=== PATIENT | female | born 1980 | race Caucasian/White ===

== ENCOUNTER 2020-10-04 19:15 | Emergency (ER) | payer OTHER ==
[~2020-10-04] VITALS: Ht 162.6 cm; Wt 59.0 kg
[2020-10-04 19:51] LABS: BASOPHILS ABSOLUTE AUTO 0.12 K/mm3 (0.00-0.23); BASOPHILS PERCENT AUTO 1 % (0-2); EOSINOPHILS ABSOLUTE AUTO 0.44 K/mm3 (0.00-0.68); EOSINOPHILS PERCENT AUTO 2 % (0-6); Hematocrit 41.1 % (33.0-51.0); IMMATURE GRAN ABSOLUTE AUTO 0.15 K/mm3 (0.00-0.10); IMMATURE GRAN PERCENT AUTO 1 % (0-1); LYMPHOCYTES ABSOLUTE AUTO 2.06 K/mm3 (0.84-5.20); LYMPHOCYTES PERCENT AUTO 10 % (21-46); MONOCYTES ABSOLUTE AUTO 2.09 K/mm3 (0.16-1.47); MONOCYTES PERCENT AUTO 10 % (4-13); Mean Corpuscular HGB 27.1 pg (26.0-34.0); Mean Corpuscular HGB Conc 31.6 g/dL (31.5-36.5); Mean Corpuscular Volume 86 fL (80-100); Mean Platelet Volume 9.3 fL (9.1-12.4); NEUTROPHILS ABSOLUTE AUTO 16.27 K/mm3 (1.96-9.15); NEUTROPHILS PERCENT AUTO 77 % (41-73); Platelet Count 401 K/mm3 (150-400); RDW Coefficient Variation 13.7 % (11.7-14.2); RDW Standard Deviation 42.9 fL (35.1-46.3); Red Blood Cell Count 4.79 M/mm3 (3.80-5.20); White Blood Cell Count 21.13 K/mm3 (4.00-11.30)
[2020-10-04] MEDS ORDERED: NEXPLANON68 MG SQ (19:55)
[2020-10-04 20:14] LABS: Alanine Aminotransfer (ALT/SGP 21 U/L (12-78); Albumin, Blood 3.5 g/dL (3.4-5.0); Albumin/Globulin Ratio 0.9 (0.8-1.8); Alk Phos 110 U/L (50-136); Anion Gap 4 mmol/L (6-16); Aspartate Aminotrans (AST/SGOT 11 U/L (12-37); Bilirubin, Total 0.5 mg/dL (0.1-1.0); Blood Urea Nitrogen 11 mg/dL (8-24); Bun/Creatinine Ratio 12.3 (12.0-20.0); CO2, Blood 27 mmol/L (21-32); Calcium, Blood 8.8 mg/dL (8.5-10.1); Chloride, Blood 105 mmol/L (98-108); Creatinine, Blood 0.89 mg/dL (0.40-1.00); Globulin, Blood 3.7 g/dL (2.2-4.0); Glomerular Filtration Rate >60 (60-); Glucose, Blood 130 mg/dL (70-99); Potassium, Blood 3.9 mmol/L (3.5-5.5); Sodium, Blood 136 mmol/L (136-145); Total Protein, Blood 7.2 g/dL (6.4-8.2)
[2020-10-04 20:16] LABS: Bilirubin, Urine Neg (Neg); Blood, Urine 5+ (Neg); Glucose Qualitative, Urine Neg (Neg); Ketones, Urine Neg (Neg); Leukocyte Esterase, Urine 3+ (Neg); Nitrite, Urine Pos (Neg); Protein, Urine 3+ (Neg); Urobilinogen, Urine NORM (Normal)
[2020-10-04 20:17] LABS: Appearance, Urine Cloudy (Clear); Color, Urine Yellow (P-Yellow)
[2020-10-04 20:27] LABS: Bacteria Many /hpf
[2020-10-04 20:29] LABS: Squamous Epithelial Cells Few /hpf (Few)
[2020-10-04 20:30] LABS: White Blood Cells, Urine TNTC /hpf (0-5)
[2020-10-04] MEDS ORDERED: CEFD300 PO (22:13)
[2020-10-04] MEDS ORDERED: ONDA4ODT MM (22:15)
== END 2020-10-04 22:25 | disposition home or self-care (01) ==
LOC: ER 19:15
PROVIDERS: Emergency Medicine; Physician Assistant
DX: N10 Acute pyelonephritis (principal); Z79.3 Long term (current) use of hormonal contraceptives
CPT/HCPCS: 76830; 76856; 80053; 81001; 84703; 85025; 86850; 86900; 86901; 87077; 87086; 87186; 96365; 99284-25; J0696; J7030

== ENCOUNTER 2020-10-05 14:19 | Inpatient (IN) | payer OTHER ==
[~2020-10-05] VITALS: Ht 162.6 cm; Wt 78.6 kg
[~2020-10-05 14:19] MED LIST: CEFD300 PO; NEXPLANON68 MG SQ; ONDA4ODT MM
[2020-10-05 15:02] LABS: BASOPHILS ABSOLUTE AUTO 0.11 K/mm3 (0.00-0.23); BASOPHILS PERCENT AUTO 1 % (0-2); EOSINOPHILS ABSOLUTE AUTO 0.23 K/mm3 (0.00-0.68); EOSINOPHILS PERCENT AUTO 1 % (0-6); Hematocrit 39.6 % (33.0-51.0); Hemoglobin 12.6 g/dL (11.5-16.0); IMMATURE GRAN ABSOLUTE AUTO 0.16 K/mm3 (0.00-0.10); IMMATURE GRAN PERCENT AUTO 1 % (0-1); LYMPHOCYTES ABSOLUTE AUTO 2.56 K/mm3 (0.84-5.20); LYMPHOCYTES PERCENT AUTO 12 % (21-46); MONOCYTES ABSOLUTE AUTO 2.82 K/mm3 (0.16-1.47); MONOCYTES PERCENT AUTO 13 % (4-13); Mean Corpuscular HGB 27.2 pg (26.0-34.0); Mean Corpuscular HGB Conc 31.8 g/dL (31.5-36.5); Mean Corpuscular Volume 86 fL (80-100); Mean Platelet Volume 9.3 fL (9.1-12.4); NEUTROPHILS ABSOLUTE AUTO 15.73 K/mm3 (1.96-9.15); NEUTROPHILS PERCENT AUTO 73 % (41-73); Platelet Count 392 K/mm3 (150-400); RDW Coefficient Variation 13.4 % (11.7-14.2); Red Blood Cell Count 4.63 M/mm3 (3.80-5.20); White Blood Cell Count 21.61 K/mm3 (4.00-11.30)
[2020-10-05 15:23] LABS: Alanine Aminotransfer (ALT/SGP 22 U/L (12-78); Albumin, Blood 3.2 g/dL (3.4-5.0); Albumin/Globulin Ratio 0.8 (0.8-1.8); Alk Phos 107 U/L (50-136); Anion Gap 4 mmol/L (6-16); Aspartate Aminotrans (AST/SGOT 14 U/L (12-37); Bilirubin, Total 0.5 mg/dL (0.1-1.0); Blood Urea Nitrogen 9 mg/dL (8-24); Bun/Creatinine Ratio 9.8 (12.0-20.0); CO2, Blood 27 mmol/L (21-32); Calcium, Blood 8.6 mg/dL (8.5-10.1); Chloride, Blood 102 mmol/L (98-108); Creatinine, Blood 0.91 mg/dL (0.40-1.00); Globulin, Blood 3.9 g/dL (2.2-4.0); Glomerular Filtration Rate >60 (60-); Glucose, Blood 117 mg/dL (70-99); Potassium, Blood 4.4 mmol/L (3.5-5.5); Sodium, Blood 133 mmol/L (136-145); Total Protein, Blood 7.1 g/dL (6.4-8.2)
[2020-10-05 18:38] LABS: Source, Urine Clean Catch
[2020-10-05 18:53] LABS: Appearance, Urine Clear (Clear); Bilirubin, Urine Neg (Neg); Blood, Urine 1+ (Neg); Color, Urine Yellow (P-Yellow); Glucose Qualitative, Urine Neg (Neg); Ketones, Urine Neg (Neg); Leukocyte Esterase, Urine 1+ (Neg); Nitrite, Urine Neg (Neg); Protein, Urine Neg (Neg); Specific Gravity, Urine 1.005 (1.003-1.022); Urobilinogen, Urine NORM (Normal); pH, Urine 6.5 (5.0-8.0)
[2020-10-05 19:01] LABS: Squamous Epithelial Cells Few /hpf (Few)
[2020-10-05 19:02] LABS: Bacteria Rare /hpf; Mucus Light (0-Heavy)
[2020-10-06 04:34] LABS: BASOPHILS ABSOLUTE AUTO 0.11 K/mm3 (0.00-0.23); BASOPHILS PERCENT AUTO 1 % (0-2); EOSINOPHILS ABSOLUTE AUTO 0.18 K/mm3 (0.00-0.68); EOSINOPHILS PERCENT AUTO 1 % (0-6); Hematocrit 35.6 % (33.0-51.0); Hemoglobin 11.1 g/dL (11.5-16.0); IMMATURE GRAN ABSOLUTE AUTO 0.12 K/mm3 (0.00-0.10); IMMATURE GRAN PERCENT AUTO 1 % (0-1); LYMPHOCYTES ABSOLUTE AUTO 2.41 K/mm3 (0.84-5.20); LYMPHOCYTES PERCENT AUTO 13 % (21-46); MONOCYTES ABSOLUTE AUTO 2.97 K/mm3 (0.16-1.47); MONOCYTES PERCENT AUTO 16 % (4-13); Mean Corpuscular HGB 27.1 pg (26.0-34.0); Mean Corpuscular HGB Conc 31.2 g/dL (31.5-36.5); Mean Corpuscular Volume 87 fL (80-100); Mean Platelet Volume 9.3 fL (9.1-12.4); NEUTROPHILS ABSOLUTE AUTO 13.27 K/mm3 (1.96-9.15); NEUTROPHILS PERCENT AUTO 70 % (41-73); Platelet Count 331 K/mm3 (150-400); RDW Coefficient Variation 13.4 % (11.7-14.2); RDW Standard Deviation 42.4 fL (35.1-46.3); Red Blood Cell Count 4.09 M/mm3 (3.80-5.20); White Blood Cell Count 19.06 K/mm3 (4.00-11.30)
[2020-10-06 04:56] LABS: Anion Gap 3 mmol/L (6-16); Blood Urea Nitrogen 9 mg/dL (8-24); Bun/Creatinine Ratio 9.8 (12.0-20.0); CO2, Blood 26 mmol/L (21-32); Calcium, Blood 7.8 mg/dL (8.5-10.1); Chloride, Blood 105 mmol/L (98-108); Creatinine, Blood 0.92 mg/dL (0.40-1.00); Glomerular Filtration Rate >60 (60-); Glucose, Blood 140 mg/dL (70-99); Potassium, Blood 4.4 mmol/L (3.5-5.5); Sodium, Blood 134 mmol/L (136-145)
--- NOTE | 2020-10-06 05:57 | NUR ---
PT ADMIT TO ROOM 312 FROM ER THIS SHIFT. A/O, IND, PT DID HAVE TEMP THIS SHIFT, TYLENOL GIVEN AND FEVER RESOLVED. MEDICATED FOR BACK AND ABD PAIN X1 THIS SHIFT PER EMAR.
--- NOTE | 2020-10-06 19:19 | NUR ---
SHIFT SUMMARY PT [email or web address]. PLEASANT AND COOPERATIVE WITH CARE. PT REPORTED SYMPTOMS OF HEADACHE, CHRISTIN FLANK PAIN, INTERMITTENT MUSCLE SPASMS, JOINT PAIN, AND FEELING FULL/PUFFY WITH TIGHTNESS TO SKIN. LR FLUIDS TEMPORARILY DECREASED TO 25ML/HR. PT REPORTED FEELING MUCH BETTER WITH DECREASED FLUIDS. MEDICATED FOR PAIN PER EMAR WITH REPORTED RELIEF. PT REPORTED WARM SHOWER AND ICE PACKS ALSO HELPED. PT VITALS REVIEWED. DENIES ANY URINARY SYMPTOMS. PER DR RAVI, CURRENT PLAN IS TO DC TOMORROW AFTER MORE IV ABX AND FLUIDS. PT CURRENTLY RESTING IN BED WITH CALL LIGHT IN REACH. DENIES ANY NEEDS AT THIS TIME. LAB CALLED AT SHIFT CHANGE WITH POSITIVE BLOOD CULTURES FOR THIS PT. PER PHARMACY, PT CURRENT ABX OF ROCEPHIN ARE PROPER COVERAGE FOR GRAM POSITIVE BACILLI. LEATHER STRETCHER (ROSEANNA) AND NIGHT RN (ALEXEI) NOTIFIED. THEY WILL NOTIFY PHYSICIAN DURING NEXT HOSPITALIST CALL OUT.
--- NOTE | 2020-10-06 19:39 | NUR ---
DR METZ NOTIFIED OF PT POSITIVE BLOOD CULTURE, NO FURTHER ORDERS AT THIS TIME.
[2020-10-07 05:31] LABS: BASOPHILS ABSOLUTE AUTO 0.08 K/mm3 (0.00-0.23); BASOPHILS PERCENT AUTO 1 % (0-2); EOSINOPHILS ABSOLUTE AUTO 0.43 K/mm3 (0.00-0.68); EOSINOPHILS PERCENT AUTO 3 % (0-6); Hematocrit 33.1 % (33.0-51.0); Hemoglobin 10.4 g/dL (11.5-16.0); IMMATURE GRAN ABSOLUTE AUTO 0.08 K/mm3 (0.00-0.10); IMMATURE GRAN PERCENT AUTO 1 % (0-1); LYMPHOCYTES ABSOLUTE AUTO 2.56 K/mm3 (0.84-5.20); LYMPHOCYTES PERCENT AUTO 19 % (21-46); MONOCYTES ABSOLUTE AUTO 1.81 K/mm3 (0.16-1.47); MONOCYTES PERCENT AUTO 13 % (4-13); Mean Corpuscular HGB 27.1 pg (26.0-34.0); Mean Corpuscular HGB Conc 31.4 g/dL (31.5-36.5); Mean Corpuscular Volume 86 fL (80-100); Mean Platelet Volume 10.4 fL (9.1-12.4); NEUTROPHILS ABSOLUTE AUTO 8.75 K/mm3 (1.96-9.15); NEUTROPHILS PERCENT AUTO 64 % (41-73); Platelet Count 310 K/mm3 (150-400); RDW Coefficient Variation 13.5 % (11.7-14.2); RDW Standard Deviation 42.2 fL (35.1-46.3); Red Blood Cell Count 3.84 M/mm3 (3.80-5.20); White Blood Cell Count 13.71 K/mm3 (4.00-11.30)
[2020-10-07 06:05] LABS: Alanine Aminotransfer (ALT/SGP 111 U/L (12-78); Albumin, Blood 2.5 g/dL (3.4-5.0); Albumin/Globulin Ratio 0.7 (0.8-1.8); Alk Phos 112 U/L (50-136); Anion Gap 3 mmol/L (6-16); Aspartate Aminotrans (AST/SGOT 86 U/L (12-37); Bilirubin, Total 0.1 mg/dL (0.1-1.0); Blood Urea Nitrogen 13 mg/dL (8-24); Bun/Creatinine Ratio 16.7 (12.0-20.0); CO2, Blood 26 mmol/L (21-32); Chloride, Blood 107 mmol/L (98-108); Creatinine, Blood 0.78 mg/dL (0.40-1.00); Globulin, Blood 3.4 g/dL (2.2-4.0); Glomerular Filtration Rate >60 (60-); Glucose, Blood 135 mg/dL (70-99); Potassium, Blood 4.5 mmol/L (3.5-5.5); Sodium, Blood 136 mmol/L (136-145); Total Protein, Blood 5.9 g/dL (6.4-8.2)
--- NOTE | 2020-10-07 06:08 | NUR ---
PT IS A/O MEDICATED FOR FLANK PAIN THIS SHIFT PER EMAR, IND IN ROOM. PT HAD POSITIVE BLOOD CX IN WHICH PHARMACY SAYS SHE IS ADEQUATELY COVERED. NOTIFIED.
[2020-10-07] MEDS ORDERED: AMOX500 PO (10:29)
[2020-10-07] MEDS ORDERED: ACET325 PO (10:30)
[2020-10-07] MEDS ORDERED: BISA10S PR (10:31)
[2020-10-07] MEDS ORDERED: BENADRYL25 MG PO (10:32)
[2020-10-07] MEDS ORDERED: HYDR1TAB94 PO (10:33)
[2020-10-07] MEDS ORDERED: VISBIOME 112.51 EACH PO (10:38)
[2020-10-07] MEDS ORDERED: IBUP600 PO (10:38)
[2020-10-07] MEDS ORDERED: ASCO500 PO (10:58)
[2020-10-07] MEDS ORDERED: FERSU300 PO (10:59)
--- NOTE | 2020-10-07 17:09 | NUR ---
DISCHARGE SUMMARY PT [email or web address]. PLEASANT AND COOPERATIVE WITH CARE. PT DC'ING TODAY TO [place] SHE L[place]. PT REPORTS HEADACHE PAIN TODAY x1. MEDICATED PER EMAR. IV ABX INFUSED PRIOR TO DC. DC INSTRUCTIONS DISCUSSED WITH PATIENT, INCLUDING ESTABLISHING CARE WITH LOCAL PCP (SELENA)/FOLLOW UP APPOINTMENT, DC MEDICATIONS, AND PATIENT EDUCATION ON DIAGNOSIS. PT VERBALIZES UNDERSTANDING. DENIES ANY FURTHER QUESTIONS AT THIS TIME. VITALS REVIEWED. PT SAFELY ESCORTED OUT WITH THIS RN. RIDE PICKING HER UP AT PATIENT ENTRANCE.
--- NOTE | 2020-10-07 17:56 | NUR ---
Spiritual care note: Blanca smiled easily and stated she was pleased to be going home this afternoon. No concerns presented and she reports hope for complete recovery. No buddhism beliefs/practices.
== END 2020-10-07 17:14 | disposition home or self-care (01) | DRG 872 ==
LOC: ER 14:19 → MEDS 18:53
PROVIDERS: Family Medicine; Nurse Practitioner Acute Care; Physician Assistant; ADMIT Internal Medicine
DX: A41.9 Sepsis, unspecified organism (principal); N12 Tubulo-interstitial nephritis, not specified as acute or chronic; F17.210 Nicotine dependence, cigarettes, uncomplicated; N92.1 Excessive and frequent menstruation with irregular cycle; R74.01 Elevation of levels of liver transaminase levels
CPT/HCPCS: 36415; 76770; 80048; 80053; 81001; 83605; 83690; 85025; 87040; 96365; 96375; 99285-25; A9270; J0696; J1170; J1650; J1885; J2405; J7030; J7050; J7120